=== PATIENT | female | born 1995 | race Caucasian/White ===

== ENCOUNTER 2016-11-29 11:16 | Emergency (ER) | payer SELFPAY ==
[~2016-11-29] VITALS: Ht 172.7 cm; Wt 61.2 kg
[2016-11-29] MEDS ORDERED: NAPROSYN500 MG PO (11:33)
== END 2016-11-29 12:56 | disposition left against medical advice (07) ==
LOC: ED 11:16
DX: M79.671 Pain in right foot (principal); Z88.0 Allergy status to penicillin; Z88.1 Allergy status to other antibiotic agents